=== PATIENT | female | born 2000 | race Caucasian/White ===

== ENCOUNTER 2023-05-17 05:28 | Emergency (ER) | payer OTHER ==
[2023-05-17 05:49] VITALS: TEMP 99; BMI 22.4
[2023-05-17] MEDS ORDERED: ALBUTEROL SO4 2.5/IPRATROPIUM 0.5 INH SOL 3 ML VIAL.NEB. NEB ONE (05:52)
[2023-05-17] MEDS ORDERED: DEXAMETHASONE SOD PHOSPHATE 10 MG/1 ML VIAL IM ONE (05:52)
[2023-05-17] MEDS ORDERED: predniSONE 20 MG TABLET (UD) PO ONE (05:55)
[2023-05-17 10:27] VITALS: BP 107/70; PULSE 63; RESP 16
== END 2023-05-17 10:27 | disposition home or self-care (01) ==
LOC: JER 05:28
PROC: 3E0F7GC Introduction of Other Therapeutic Substance into Respiratory Tract, Via Natural or Artificial Opening (ICD-10-PCS; principal; 2023-05-17)
DX: R05.9 Cough, unspecified (principal); J02.9 Acute pharyngitis, unspecified; J45.909 Unspecified asthma, uncomplicated; R06.02 Shortness of breath; Z20.822 Contact with and (suspected) exposure to COVID-19
CPT/HCPCS: 0241U-QW; 71045-TC-FY; 99284-25

== ENCOUNTER 2023-07-07 21:11 | Emergency (ER) | payer OTHER ==
[2023-07-07 21:21] VITALS: BP 132/82; PULSE 100; RESP 18; TEMP 97.9; BMI 25.0
[2023-07-07] MEDS ORDERED: ACETAMINOPHEN 500 MG TABLET (FP) PO ONE (21:52)
[2023-07-07] MEDS ORDERED: DIPHTH,PERTUSS(ACELL),TET 0.5 ML DISP.SYRIN IM ONE ×2 (21:52→22:26)
[2023-07-07] MEDS ORDERED: ACETAMINOPHEN 325 MG TABLET (FP) ONE (22:26)
== END 2023-07-07 22:59 | disposition home or self-care (01) ==
LOC: JER 21:11
PROC: 0HQ1XZZ Repair Face Skin, External Approach (ICD-10-PCS; principal; 2023-07-07)
PROC: 3E0234Z Introduction of Serum, Toxoid and Vaccine into Muscle, Percutaneous Approach (ICD-10-PCS; 2023-07-07)
DX: S01.111A Laceration without foreign body of right eyelid and periocular area, initial encounter (principal); Y04.2XXA Assault by strike against or bumped into by another person, initial encounter; Y92.481 Parking lot as the place of occurrence of the external cause
CPT/HCPCS: 12011-25; 90471; 90715; 99283-25